=== PATIENT | male | born 1985 | race Caucasian/White ===

== ENCOUNTER 2020-12-26 10:24 | Emergency (ER) | payer MEDICAID ==
[~2020-12-26] VITALS: Ht 182.9 cm; Wt 72.6 kg
[2020-12-26 10:26] VITALS: BP 125/90
[2020-12-26 11:41] LABS: Basophils # (auto) 0 10 ^3/uL (0-0.2); Basophils % (auto) 0.4 % (0.0-2.0); Eosinophils # (auto) 0 10 ^3/uL (0-0.8); Eosinophils % (auto) 0.5 % (0.0-7.0); Hematocrit 41.7 % (41.0-53.0); Hemoglobin 14.4 g/dL (13.5-17.5); Lymphocytes # (auto) 1.5 10 ^3/uL (0.4-5.4); Lymphocytes % (auto) 18.6 % (10.0-50.0); Mean Corpuscular Hemoglobin 28.3 pg (28.0-32.0); Mean Corpuscular Hgb Conc. 34.4 g/dL (32.0-36.0); Mean Corpuscular Volume 82.3 fL (80.0-100.0); Monocytes # (auto) 0.4 10 ^3/uL (0-1.3); Monocytes % (auto) 5.1 % (0.0-12.0); Neutrophils # (auto) 6.1 10 ^3/uL (1.6-8.6); Neutrophils % (auto) 75.4 % (37.0-80.0); Platelet Count (auto) 277 10^3/uL (140-450); Red Blood Cells 5.07 10^6/uL (4.5-5.90); White Blood Cell 8.1 10^3/uL (4.4-10.8)
[2020-12-26 11:53] LABS: Anion Gap 7 (5-15); Blood Urea Nitrogen 11 mg/dL (7-18); Carbon Dioxide 28 mmol/L (21-32); Chloride 104 mmol/L (98-107); Glucose 99 mg/dL (74-106); Sodium 139 mmol/L (136-145)
[2020-12-26 12:03] LABS: BUN/Creatinine Ratio 11.2; Calcium 9.2 mg/dL (8.5-10.1); GFR African American 113 mL/min; GFR Non-African American 94 mL/min
== END 2020-12-26 12:31 | disposition home or self-care (01) ==
LOC: ER 10:24
DX: R07.89 Other chest pain (principal); F41.9 Anxiety disorder, unspecified; F12.10 Cannabis abuse, uncomplicated
CPT/HCPCS: 36415; 71046; 80048; 84484; 85025; 93005